=== PATIENT | male | born 2000 | race Hispanic/Latino ===

== ENCOUNTER 2021-06-09 16:43 | Emergency (ER) | payer BC ==
[~2021-06-09] VITALS: Ht 165.1 cm; Wt 47.6 kg
[2021-06-09] MEDS ORDERED: METHYLPREDNISOLO4 M1 PO (18:39)
[2021-06-09] MEDS ORDERED: VENTOLIN HFA18 GM INH (18:39)
[2021-06-09] MEDS ORDERED: ACETAMINOPHEN-C1 TAB PO (20:28)
[2021-06-09] MEDS ORDERED: TESSALON PERLE100 MG PO (20:28)
== END 2021-06-09 20:38 | disposition home or self-care (01) ==
LOC: ED 16:43
DX: R05 Cough (principal)
CPT/HCPCS: 71045; 99283-25